=== PATIENT | male | born 2000 | race Hispanic/Latino ===

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

== ENCOUNTER 2018-03-02 11:07 | Emergency (ER) | payer BC, OTHER ==
[2018-03-02] MEDS ORDERED: NA CHLORIDE 0.9% 1,000 ML ONE (11:34)
[2018-03-02 11:43] LABS: Potassium 3.8 mmol/L (3.5-5.1)
[2018-03-02 11:51] LABS: Absolute Lymphocytes (CBC) 1.7 K/uL (0.7-4.9); Absolute Monocytes 0.5 K/uL (0.1-1.3); Absolute Neutrophil 3.3 K/uL (1.8-8.0); Basophils % 1.1 % (0-1.3); Hematocrit 45.1 % (39.6-49.0); Lymphocytes % 29.9 % (15.3-44.8); MCH 33.1 pg (27.0-35.0); MCV 95.2 fL (80-100); Monocytes % 9.2 % (3.3-12.3); RBC Red Blood Cell Count 4.73 M/uL (4.33-5.43)
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
== END 2018-03-02 13:24 | disposition home or self-care (01) ==
LOC: ER 11:07
DX: S00.93XA Contusion of unspecified part of head, initial encounter (principal); V49.40XA Driver injured in collision with unspecified motor vehicles in traffic accident, initial encounter; Z91.02 Food additives allergy status
CPT/HCPCS: 36415; 70450; 71260; 72125; 74177; 80048; 85025; 96360; 99285; J7030; Q9967